=== PATIENT | female | born 1975 ===

== ENCOUNTER → 2024-10-19 11:48 | Outpatient (REF) | payer MEDICARE, SELFPAY | LOC: PAVMRI 11:48 | PROVIDERS: ATTENDING PHYSICIAN Internal Medicine Hematology & Oncology; FAMILY PHYSICIAN Internal Medicine | DX: D64.9 Anemia, unspecified (principal); D50.9 Iron deficiency anemia, unspecified; D56.8 Other thalassemias; C50.111 Malignant neoplasm of central portion of right female breast; D70.1 Agranulocytosis secondary to cancer chemotherapy; Z51.11 Encounter for antineoplastic chemotherapy; Z51.12 Encounter for antineoplastic immunotherapy; Z79.899 Other long term (current) drug therapy | CPT/HCPCS: 70553; A9575 ==